=== PATIENT | male | born 1955 | race African-American/Black ===

== ENCOUNTER 2018-10-01 20:04 | Inpatient (IN) | payer OTHER ==
[~2018-10-01] VITALS: Ht 170.2 cm; Wt 70.3 kg
[2018-10-01 22:06] LABS: BASOPHIL % 0.3 % (0-2); PLATELET COUNT 215 x10^3mcL (130-400); RED CELL DISTRIBUTION WIDTH 13.1 % (11.5-14.5)
[2018-10-01 22:16] LABS: CARBON DIOXIDE 26.5 mmol/L (21-32); CREATININE SERUM 1.3 mg/dL (0.7-1.3)
[2018-10-01 22:20] LABS: ALBUMIN 4.5 g/dL (3.4-5.0); BILIRUBIN TOTAL 0.2 mg/dL (0.20-1.00)
[2018-10-01 22:21] LABS: TOTAL PROTEIN, SERUM 9.5 g/dL (6.4-8.2)
[2018-10-01 23:45] LABS: MAGNESIUM 2.5 mg/dL (1.8-2.4); PHOSPHOROUS 2.2 mg/dL (2.5-4.9)
[2018-10-01 23:46] LABS: CHOLESTEROL/HDL RATIO 3.2
[2018-10-01 23:49] LABS: T3 TOTAL 1.11 ng/mL
[2018-10-01 23:57] LABS: FREE T4 1.16 ng/dL (0.76-1.46); FREE THYROXINE INDEX 3.8 ug/dL (1.4-4.5); T4(THYROXINE) 10.3 ug/dL (4.7-13.3)
[2018-10-02] VITALS (7 sets, daily range): BP systolic 105–142; BP diastolic 64–93; Ht 170.2 cm; Wt 70.3 kg
[2018-10-02 00:08] LABS: microscopic required? NO
[2018-10-02 00:27] LABS: urine erythrocyte NEGATIVE (NEGATIVE)
[2018-10-02 00:39] LABS: AMPHETAMINE QUAL UR POSITIVE (See below)
[2018-10-02 07:18] LABS: CALCIUM 8.7 mg/dL (8.5-10.1); CARBON DIOXIDE 28.3 mmol/L (21-32); CHLORIDE SERUM 106 mmol/L (98-107); CREATININE SERUM 1.2 mg/dL (0.7-1.3); GFR1 > 60 mL/min; GLUCOSE SERUM 106 mg/dL (74-106); MAGNESIUM 2.3 mg/dL (1.8-2.4); PHOSPHOROUS 3.4 mg/dL (2.5-4.9); POTASSIUM SERUM 4.7 mmol/L (3.5-5.1); SODIUM SERUM 140 mmol/L (136-145)
[2018-10-02 07:30] LABS: BASOPHIL % 0.4 % (0-2); PLATELET COUNT 201 x10^3mcL (130-400); RED CELL DISTRIBUTION WIDTH 13.3 % (11.5-14.5)
[2018-10-03 05:20] VITALS: BP 12/86
[2018-10-03 06:10] LABS: BASOPHIL % 0.5 % (0-2); PLATELET COUNT 188 x10^3mcL (130-400); RED CELL DISTRIBUTION WIDTH 13.6 % (11.5-14.5)
[2018-10-03 06:45] LABS: CALCIUM 8.6 mg/dL (8.5-10.1); CARBON DIOXIDE 28.3 mmol/L (21-32); CHLORIDE SERUM 103 mmol/L (98-107); CREATININE SERUM 1.2 mg/dL (0.7-1.3); GFR1 > 60 mL/min; GLUCOSE SERUM 96 mg/dL (74-106); MAGNESIUM 2.1 mg/dL (1.8-2.4); PHOSPHOROUS 3.6 mg/dL (2.5-4.9); POTASSIUM SERUM 4.4 mmol/L (3.5-5.1); SODIUM SERUM 138 mmol/L (136-145)
[2018-10-03 09:11] VITALS: BP 121/79
[2018-10-03 13:20] VITALS: BP 114/85
[2018-10-03] MEDS ORDERED: LEVAQUIN750 MG PO (13:26)
[2018-10-03 13:27] VITALS: BP 114/85
== END 2018-10-03 13:55 | disposition home or self-care (01) | DRG 145 ==
LOC: ED 20:04 → DU 23:00
PROVIDERS: Emergency Medicine; ADMIT Internal Medicine
DX: J20.9 Acute bronchitis, unspecified (principal); N17.0 Acute kidney failure with tubular necrosis; I21.A1 Myocardial infarction type 2; I10 Essential (primary) hypertension; E78.5 Hyperlipidemia, unspecified; E83.41 Hypermagnesemia; E83.39 Other disorders of phosphorus metabolism; Z68.24 Body mass index [BMI] 24.0-24.9, adult; Z91.19 Patient's noncompliance with other medical treatment and regimen
CPT/HCPCS: 83880; 84439; 87804; 94150; J1650; J1956; J7030; J7620; Q0092; Q0161